=== PATIENT | female | born 1990 | race Caucasian/White ===

== ENCOUNTER → 2022-07-17 | Outpatient (CLI) | payer OTHER ==
[2022-07-17 15:47] VITALS: BP 122/85; PULSE 67; TEMP 98; BMI 45.1
--- NOTE | 2022-07-17 16:23 | P.BASOAP ---
Subjective Progress Note Date: 07/17/22 Patient presents for some in consultation. Highest weight of 290 pounds. She had attempted weight loss surgery however held due to recent childbirths. Mother also has morbid obesity and underwent sleeve gastrectomy doing well. Recommend bariatric metabolic panel. Also, patient reports moderate gastr oesophageal reflux disease on omeprazole. Patient also reports trials of multiple diet plans including Weight Watchers, Adipex, [place] diet, low carb diet. She has been able to 70 pounds prior to her first but she had regained the weight. She is looking into sleeve gastrectomy Objective - Vital Signs Vital signs: Vital Signs Temp 98 F 07/17/22 15:41 Pulse 67 07/17/22 15:41 Resp BP 122/85 07/17/22 15:41 Pulse Ox FiO2 Intake & Output 07/16/22 07/17/22 07/17/22 18:59 06:59 18:59 Weight 130.635 kg Assessment/Plan Plan: Date: 07/17/22 Initial Weight: Initial BMI: Current Weight: 130.635 kg Current BMI: 45.1 Type of Surgery: Total Volume in Band: Previous Volume: Volume Removed: Volume Added: Band Size:
[2022-07-17 17:30] LABS: INR 0.9 (<1.2); Partial Thromboplastin Time 25.9 sec (22.0-30.0); Prothrombin Time 10.1 sec (9.0-12.0)
[2022-07-17 22:38] LABS: HCT 41.3 % (37.2-46.3); HGB 13.3 g/dL (12.0-15.0); MCHC 32.2 g/dL (32.0-37.0); Mean Platelet Volume 9.7 fL (9.5-12.2); NRBC Per 100 WBC 0 /100 WBCS (0.0-0.0); Platelet Count 320 X 10*3/uL (140-440); RBC 4.59 X 10*6/uL (4.10-5.20); WBC 6.32 X 10*3/uL (4.50-10.00)
[2022-07-17 23:22] LABS: % Iron Saturation 13.23 (12.00-45.00); Total Iron Binding Capacity 398 ug/dL (228-460)
[2022-07-17 23:26] LABS: ALT 18 U/L (8-44); AST 25 U/L (13-35); African American GFR (CKD) 140.3 (60.0-200.0); Albumin 4.3 g/dL (3.8-4.9); Alkaline Phosphatase 97 U/L (41-126); BUN/Creat Ratio 23.85 Ratio (12.00-20.00); Blood Urea Nitrogen 15.1 mg/dL (9.0-27.0); Calcium 9.4 mg/dL (8.7-10.3); Carbon Dioxide 26.1 mmol/L (20.0-27.5); Chloride 102 mmol/L (96-109); Ferritin 19.4 ng/mL (10.0-291.0); Globulin 2.5 g/dL (1.6-3.3); Glucose 88 mg/dL (70-110); Iron 53 ug/dL (50-170); Magnesium 1.9 mg/dL (1.5-2.4); Phosphorus 3.4 mg/dL (2.4-5.1); Potassium 3.8 mmol/L (3.5-5.5); Sodium 139 mmol/L (135-145); Total Protein 6.9 g/dL (6.2-8.2)
[2022-07-17 23:33] LABS: Chol/HDL Ratio 2.82 Ratio; LDL Cholesterol,Calculated 98.4 mg/dL (0.0-131.0); Prealbumin 18.9 mg/dL (18.0-42.0)
[2022-07-19 11:53] LABS: Zinc, Serum 57 ug/dL (60-130)
== END ==
LOC: BARWHC3 09:32
PROVIDERS: ATTEND Surgery Plastic and Reconstructive Surgery
DX: E66.01 Morbid (severe) obesity due to excess calories (principal); D50.8 Other iron deficiency anemias; D50.9 Iron deficiency anemia, unspecified; E44.1 Mild protein-calorie malnutrition; E45 Retarded development following protein-calorie malnutrition; E55.9 Vitamin D deficiency, unspecified; K74.1 Hepatic sclerosis; N19 Unspecified kidney failure; T56.894A Toxic effect of other metals, undetermined, initial encounter; K50.90 Crohn's disease, unspecified, without complications; Z71.51 Drug abuse counseling and surveillance of drug abuser; Z68.42 Body mass index [BMI] 45.0-49.9, adult
CPT/HCPCS: 84255; 84134; 84425; 80061; 80053; 82607; 82728; 82525; 82746; 83540; 83550; 83735; 84100; 84443; 84590; 84630; 85027; 85610; 85730; 82306; 83970; 80307; 99203; 93005; G0482

== ENCOUNTER → 2022-09-30 | Outpatient (CLI) | payer OTHER ==
[2022-09-30 10:18] VITALS: BMI 45.8
== END ==
LOC: BARWHC3 08:38
PROVIDERS: ATTEND Surgery Plastic and Reconstructive Surgery
DX: E66.01 Morbid (severe) obesity due to excess calories (principal); Z71.3 Dietary counseling and surveillance; Z68.42 Body mass index [BMI] 45.0-49.9, adult
CPT/HCPCS: 97804

== ENCOUNTER → 2022-10-09 | Outpatient (CLI) | payer OTHER ==
[2022-10-10 09:13] VITALS: BP 131/84; PULSE 67; RESP 16; TEMP 97.9; BMI 45.7
--- NOTE | 2022-11-24 19:46 | P.BASOAP ---
Subjective Progress Note Date: 10/09/22 DATE OF SERVICE: 10/09/22 CHIEF COMPLAINT: Morbid obesity HISTORY OF PRESENT ILLNESS: Jo Ann Hansen is a 31-year-old female who comes with lifelong morbid obesity. As result of morbid obesity, she has developed osteoarthritis including gastroesophageal reflux disease. She has completed dietary classes. She completed upper endoscopy. She comes in with a 4 pound weight gain in 3 months. At height of 5 feet 7 iinches, her ideal body weight is 158 pounds. She was 287 pounds. She comes in 291 pounds, 3 months. She has gained 4 pounds in 3 months. Her body mass index is 45.7. She is 133 pounds overweight. PAST MEDICAL HISTORY: 1. Morbid obesity due to excess calories 2. Body mass index of 45.7 3. Osteoarthritis of the knees. 4. Osteoarthritis of the lower back. 5. Gastroesophageal reflux disease 6. Generalized anxiety disorder 7. Depressive disorder PAST SURGICAL HISTORY: 1. Upper endoscopy HOME MEDICATIONS: Home Medications Medication Instructions Recorded Confirmed Escitalopram Oxalate [Lexapro] 10 mg PO DAILY 07/17/22 10/16/22 Omeprazole 20 mg PO DAILY 07/17/22 10/16/22 Cholecalciferol [Vitamin D3 (125 250 mcg PO DAILY 08/21/22 10/16/22 Mcg = 5000 Iu)] Zinc Gluconate [Zinc] 50 mg PO DAILY 08/21/22 10/16/22 ALLERGIES: Allergies Allergy/AdvReac Type Severity Reaction Status Date / Time No Known Allergies Allergy Verified 08/26/22 07:45 SOCIAL HISTORY: No past tobacco use. FAMILY HISTORY: No family history of ulcerative colitis disease or Crohn's disease. Family history of morbid obesity. No lupus in the family. No reports of stomach or esophageal cancer. REVIEW OF ORGAN SYSTEMS: CONSTITUTIONAL: At height of 5 feet 7 iinches, her ideal body weight is 158 pounds. She comes in 291 pounds. Her body mass index is 45.7. She is 133 pounds overweight. HEENT: Denies any active troubles with vision or hearing. ENDOCRINE: Denies diabetes. Denies hypothyroidism. CARDIOVASCULAR: Past reports of palpitations or heart attacks or chest pain. RESPIRATORY: No recent pneumonia. GASTROINTESTINAL: Denies any bright red blood per rectum. Has gastroesophageal reflux disease. MUSCULOSKELETAL: Has lower back pain and joint pain. Has osteoarthritis of the knees. NEURO: No headaches. No seizure disorders. PSYCH: Has depression. No suicidal ideation. RHEUMATOLOGIC: No lupus. No rheumatoid arthritis. HEMATOLOGIC: Denies any abnormal bleeding or bruising. No personal history of DVTs. SKIN: Has rash. No skin cancer. PHYSICAL EXAM: VITAL SIGNS: Height 5 foot 7 inches, weight 291 pounds. BMI 45.7 Vital Signs Temp 97.9 F 10/09/22 09:06 Pulse 67 10/09/22 09:06 Resp 16 10/09/22 09:06 BP 131/84 10/09/22 09:06 Pulse Ox FiO2 GENERAL: Well-developed in no acute distress. HEENT: No scleral icterus. Extraocular movements grossly intact. Hears conversational speech. No nasal drainage. NECK: Supple without lymphadenopathy. CHEST: Nonlabored respirations with equal bilateral excursions. CARDIOVASCULAR: Regular rate and regular rhythm. Distal 2+ pulses. ABDOMEN: Obese, soft, nontender, nondistended. MUSCULOSKELETAL: No clubbing, cyanosis. NEURO: No focal or lateralizing signs. Cranial nerves 2 through 12 grossly within normal limits. PSYCH: Appropriate affect. Alert and oriented to person, place and time. SKIN: Good skin turgor. Well perfused. LABS: Triglycerides elevated. Cholesterol elevated. Vitamin D low. Zinc low. EKG: Normal sinus rhythm FINDINGS: Squamocolumnar junction 37 cm from the incisors. Diaphragmatic hiatus at 37 cm. Hill grade 2 lower esophageal valve. LA grade B erosive esophagitis. Cold forceps biopsies obtained of duodenum Chronic gastritis Final Pathologic Diagnosis A. DUODENUM, BIOPSY: Benign small bowel mucosa with intact villous architecture, negative for histopathologic abnormality. B. GASTRIC ANTRUM, BIOPSY: Mild chronic gastritis. Helicobacter pylori organisms are not identified on routine H+E sections. ASSESSMENT: 1. Morbid obesity due to excess calories 2. Body mass index of 45.7 3. Osteoarthritis of the knees. 4. Osteoarthritis of the lower back. 5. Gastroesophageal reflux disease 6. Generalized anxiety disorder 7. Depressive disorder 8. Hypertriglyceridemia 9. Hypercholesterolemia 10. Vitamin D deficiency 11. Zinc deficiency PLAN: 1. Bariatric options between a sleeve, band and a Heather-en-Y gastric bypass were reviewed in detail. 2. Completion of bariatric assessment described including psych assessment, risk assessment. 3. Recommend vitamin D supplement 4. Recommend zinc supplement Objective - Vital Signs Vital signs: Vital Signs Temp 97.9 F 10/09/22 09:06 Pulse 67 10/09/22 09:06 Resp 16 10/09/22 09:06 BP 131/84 10/09/22 09:06 Pulse Ox FiO2 Assessment/Plan Plan: Date: 10/09/22 Initial Weight: 130.635 kg Initial BMI: 45.1 Current Weight: 132.449 kg Current BMI: 45.7 Type of Surgery: Total Volume in Band: Previous Volume: Volume Removed: Volume Added: Band Size:
== END ==
LOC: BARWHC3 16:30
PROVIDERS: ATTEND Surgery Plastic and Reconstructive Surgery
DX: E66.01 Morbid (severe) obesity due to excess calories (principal); K21.9 Gastro-esophageal reflux disease without esophagitis; F41.1 Generalized anxiety disorder; M47.816 Spondylosis without myelopathy or radiculopathy, lumbar region; F32.A Depression, unspecified; E78.00 Pure hypercholesterolemia, unspecified; M17.0 Bilateral primary osteoarthritis of knee; Z71.3 Dietary counseling and surveillance; E55.9 Vitamin D deficiency, unspecified; E60 Dietary zinc deficiency; Z68.42 Body mass index [BMI] 45.0-49.9, adult
CPT/HCPCS: 99211

== ENCOUNTER → 2022-12-25 | Outpatient (CLI) | payer OTHER ==
[2022-12-26 02:21] LABS: ALT 18 U/L (8-44); AST 27 U/L (13-35); Albumin 4.3 d/dL (3.8-4.9); Albumin/Globulin Ratio 1.72 Ratio (1.60-3.17); Alkaline Phosphatase 93 U/L (41-126); Blood Urea Nitrogen 10.5 mg/dL (9.0-27.0); Calcium 9.3 mg/dL (8.7-10.3); Carbon Dioxide 22.4 mmol/L (21.6-31.8); Chloride 104 mmol/L (96-109); Globulin 2.5 d/dL (1.6-3.3); Glucose 73 mg/dL (70-110); Potassium 3.9 mmol/L (3.5-5.5); Sodium 140 mmol/L (135-145); Total Bilirubin 0.4 mg/dL (0.3-1.2); Total Protein 6.8 d/dL (6.2-8.2)
[2022-12-26 02:27] LABS: Basophils # (A) 0.04 X 10*3/uL (0.00-0.10); Basophils % (A) 0.6 %; Eosinophils # (A) 0.04 X 10*3/uL (0.04-0.35); Eosinophils % (A) 0.6 %; HCT 41.7 % (37.2-46.3); HGB 13.6 d/dL (12.0-15.0); Lymphocytes # (A) 2.11 X 10*3/uL (0.90-5.00); Lymphocytes % (A) 34.2 %; MCH 29.1 pg (27.0-32.0); MCHC 32.6 d/dL (32.0-37.0); MCV 89.3 FL (80.0-97.0); Mean Platelet Volume 9.6 FL (9.5-12.2); Monocytes # (A) 0.43 X 10*3/uL (0.20-1.00); NRBC Per 100 WBC 0 X 10*3/uL (0.00-0.01); Neutrophils # (A) 3.53 X 10*3/uL (1.80-7.70); Neutrophils % (A) 57.3 %; Platelet Count 329 X 10*3/uL (140-440); RBC 4.67 X 10*6/uL (4.10-5.20); RDW 13.3 % (11.5-14.5); WBC 6.17 X 10*3/uL (4.50-10.00)
== END | disposition home or self-care (01) ==
LOC: LABPAT 16:08
PROVIDERS: ATTEND Surgery Plastic and Reconstructive Surgery
DX: Z01.812 Encounter for preprocedural laboratory examination (principal)
CPT/HCPCS: 80053; 85025

== ENCOUNTER 2022-12-30 10:06 | Inpatient (IN) | payer OTHER ==
[~2022-12-30 10:06] MED LIST: CHLORHEXIDINE GLUCONATE 15 ML CUP MUCOUS MEM PRN; ENOXAPARIN 40 MG/0.4 ML SYRINGE SQ PRN; ceFAZolin 3 GM in SODIUM CHLORIDE 0.9% 100 ML IVPB PRN
[2022-12-30] MEDS ORDERED: DEXAMETHASONE SOD PHOSPHATE 4 MG/ML 1 ML VIAL IV ONE (13:32)
[2022-12-30] MEDS ORDERED: SCOPOLAMINE 1 MG/72 HR PATCH TRANSDERM ONE (13:32)
[2022-12-30] MEDS ORDERED: ONDANSETRON 4 MG/2 ML VIAL IVP ONE (13:32)
[2022-12-30] MEDS ORDERED: MIDAZOLAM 2 MG/2 ML VIAL IV PRN (13:32)
[2022-12-30] MEDS ORDERED: HYDROmorphone 0.5 MG/0.5 ML SYRINGE IVP PRN (13:32)
[2022-12-30] MEDS ORDERED: LACTATED RINGERS 1,000 ML IV SCH (13:32)
[2022-12-30] MEDS ORDERED: PANTOPRAZOLE 40 MG/10 ML VIAL IVP PRN (13:59)
[2022-12-30] MEDS ORDERED: LIDOCAINE 1% (10MG/ML) FOR IV START INTRADERMA ONE (14:03)
--- NOTE | 2022-12-30 15:40 | P.GSHP ---
History of Present Illness H&P Date: 12/30/22 CHIEF COMPLAINT: Morbid obesity HISTORY OF PRESENT ILLNESS: Jo Ann Hansen is a 32-year-old female who comes with lifelong morbid obesity. As result of morbid obesity, she has developed hypertensive heart disease, obstructive sleep apnea, hyperlipidemia, osteoarthritis of the hips and knees. She has completed medical supervised weight loss. She completed medical including cardiac assessment. She has completed psychological risk assessment. All surgical options were reviewed. She elected for sleeve gastrectomy. At height of 5 feet 7 inches, her ideal body weight is 159 pounds. She comes in 130.8 kg. Her body mass index is 45.2 PAST MEDICAL HISTORY: 1. Morbid obesity due to excess calories 2. Body mass index of 45.2 3. Osteoarthritis of the knees. 4. Osteoarthritis of the lower back. 5. Hypertensive heart disease. 6. Gastroesophageal reflux disease 7. Hyperlipidemia 8. Obstructive sleep apnea PAST SURGICAL HISTORY: 1. Reviewed HOME MEDICATIONS: Reviewed ALLERGIES: Reviewed SOCIAL HISTORY: No current tobacco use. FAMILY HISTORY: No family history of ulcerative colitis disease or Crohn's disease. Family history of morbid obesity. No lupus in the family. No reports of stomach or esophageal cancer. REVIEW OF ORGAN SYSTEMS: CONSTITUTIONAL: At height of 5 feet 7 inches, her ideal body weight is 158 pounds. HEENT: Denies any active troubles with vision or hearing. ENDOCRINE: Has diabetes. Has hypothyroidism. CARDIOVASCULAR: Past reports of palpitations or heart attacks or chest pain. RESPIRATORY: Has daytime somnolence. GASTROINTESTINAL: Denies any bright red blood per rectum. Has gastroesophageal reflux disease. MUSCULOSKELETAL: Has lower back pain and joint pain. Has osteoarthritis of the knees. NEURO: No headaches. No seizure disorders. PSYCH: Has depression. No suicidal ideation. RHEUMATOLOGIC: No lupus. No rheumatoid arthritis. HEMATOLOGIC: Denies any abnormal bleeding or bruising. No personal history of DVTs. SKIN: Has rash. No skin cancer. PHYSICAL EXAM: VITAL SIGNS: Height 5 foot 7 inches, weight 130.8 kg. BMI 45.2 GENERAL: Well-developed in no acute distress. HEENT: No scleral icterus. Extraocular movements grossly intact. Hears conversational speech. No nasal drainage. NECK: Supple without lymphadenopathy. CHEST: Nonlabored respirations with equal bilateral excursions. CARDIOVASCULAR: Regular rate and regular rhythm. Distal 2+ pulses. ABDOMEN: Obese, soft, nontender, nondistended. MUSCULOSKELETAL: No clubbing, cyanosis. NEURO: No focal or lateralizing signs. Cranial nerves 2 through 12 grossly within normal limits. PSYCH: Appropriate affect. Alert and oriented to person, place and time. SKIN: Good skin turgor. Well perfused. ASSESSMENT: 1. Morbid obesity due to excess calories 2. Body mass index of 45.2 3. Osteoarthritis of the knees. 4. Osteoarthritis of the lower back. 5. Hypertensive heart disease. 6. Gastroesophageal reflux disease 7. Hyperlipidemia 8. Obstructive sleep apnea PLAN: 1. Bariatric options between a sleeve, band and a Heather-en-Y gastric bypass were reviewed in detail. The patient elected for a sleeve gastrectomy. Robotic assisted approach described. 2. The [place] [facility] Data was also reviewed with benefits and risks as described. 3. An 8 page second-generation bariatric consent form was reviewed in detail including potential of bleeding, infection, leaks, adequate weight loss, nutritional deficiencies which the patient demonstrated understanding of the risks. 4. A 2 week high-protein low caloric 800 kcal diet described to address hepatomegaly. 5. Preoperative labs including complete metabolic panel and CBC with type and screen recommended. 6. DVT prophylaxis per [place] [facility] collaborative. 7. Antibiotic prophylaxis. 8. Inpatient hospitalization anticipated for more than 2 nights. 9. All questions and concerns were addressed with the patient. 10. She is at elevated risk for perioperative complications secondary to persistent leukocytosis, obstructive sleep apnea 11. Overall, patient has expressed understanding of bariatric care including postoperative diet and commitment of lifestyle. Patient should benefit from surgical intervention for correction of her morbid obesity. Past Medical History Past Medical History: GERD/Reflux Additional Past Medical History / Comment(s): diagnosed with reflux during pregnancies History of Any Multi-Drug Resistant Organisms: None Reported Additional Past Surgical History / Comment(s): wisdom teeth removed. EGD Past Anesthesia/Blood Transfusion Reactions: No Reported Reaction Smoking Status: Never smoker - Past Family History Mother Family Medical History: No Reported History Medications and Allergies Home Medications Medication Instructions Recorded Confirmed Type Escitalopram Oxalate [Lexapro] 10 mg PO DAILY 07/17/22 12/20/22 History Omeprazole 20 mg PO DAILY 07/17/22 12/20/22 History Cholecalciferol [Vitamin D3 (125 250 mcg PO DAILY 08/21/22 12/20/22 History Mcg = 5000 Iu)] Zinc Gluconate [Zinc] 50 mg PO DAILY 08/21/22 12/20/22 History Allergies Allergy/AdvReac Type Severity Reaction Status Date / Time No Known Allergies Allergy Verified 12/30/22 13:40 Surgical - Exam Vital Signs Temp Pulse Resp BP Pulse Ox 98.6 F 85 16 128/62 99 12/30/22 13:51 12/30/22 13:51 12/30/22 13:51 12/30/22 13:51 12/30/22 13:51
[2022-12-30] MEDS ORDERED: MIDAZOLAM 2 MG/2 ML VIAL ONE (16:14)
[2022-12-30] MEDS ORDERED: SUCCINYLCHOLINE CHLORIDE 200 MG/10 ML VIAL IV ONE (16:14)
[2022-12-30] MEDS ORDERED: NEOSTIGMINE 1 MG/ML 10 ML VIAL ONE (16:14)
[2022-12-30] MEDS ORDERED: ROCURONIUM 10 MG/ML (5 ML VIAL) IV ONE (16:14)
[2022-12-30] MEDS ORDERED: LIDOCAINE 2% INJ 20 MG/ML (2 ML VIAL) ONE (16:14)
[2022-12-30] MEDS ORDERED: KETAMINE 10 MG/ML 20 ML VIAL ONE (16:14)
[2022-12-30] MEDS ORDERED: PROPOFOL 10 MG/ML 20 ML VIAL IV ONE (16:14)
[2022-12-30] MEDS ORDERED: GLYCOPYRROLATE 0.2 MG/ML 2 ML VIAL ONE (16:14)
[2022-12-30] MEDS ORDERED: HYDROmorphone (PF) 1 MG/ML ONE (16:14)
[2022-12-30] MEDS ORDERED: diphenhydrAMINE 50 MG/ML 1 ML VIAL ONE (16:14)
[2022-12-30] MEDS ORDERED: fentaNYL (PF) 50 MCG/ML 2 ML AMP ONE (16:14)
[2022-12-30] MEDS ORDERED: BUPIVACAINE (PF) 0.25% 30 ML VIAL SQ ONE ×2 (16:26→16:47)
[2022-12-30] MEDS ORDERED: LACTATED RINGERS 1,000 ML IV ONE (17:45)
[2022-12-30] MEDS ORDERED: diphenhydrAMINE 50 MG/ML 1 ML VIAL IVP PRN (18:00)
[2022-12-30] MEDS ORDERED: NALOXONE 0.4 MG/ML 1 ML VIAL IV PRN (18:00)
[2022-12-30] MEDS ORDERED: DEXAMETHASONE SOD PHOSPHATE 10 MG/ML 1 ML VIAL IVP STA (18:03)
[2022-12-30] MEDS ORDERED: SCOPOLAMINE 1 MG/72 HR PATCH TRANSDERM STA (18:03)
[2022-12-30] MEDS ORDERED: SODIUM CHLORIDE 0.9% 2,000 ML IV ONE (18:04)
--- NOTE | 2022-12-30 18:07 | P.OP ---
Date of Procedure: 12/30/22 Description of Procedure: SURGEON: BETY MARROQUIN MD PREOPERATIVE DIAGNOSES: 1. Morbid obesity due to excess calories 2. Body mass index of 45.2 3. Osteoarthritis of the knees. 4. Osteoarthritis of the lower back. 5. Hypertensive heart disease. 6. Gastroesophageal reflux disease 7. Hyperlipidemia 8. Obstructive sleep apnea POSTOPERATIVE DIAGNOSES: 1. Morbid obesity due to excess calories 2. Body mass index of 45.2 3. Osteoarthritis of the knees. 4. Osteoarthritis of the lower back. 5. Hypertensive heart disease. 6. Gastroesophageal reflux disease 7. Hyperlipidemia 8. Obstructive sleep apnea OPERATION: 1. Robotic assisted daVinci Xi laparoscopic sleeve gastrectomy with 40-Greenlandic bougie, multiport. 2. Intraoperative esophagogastroduodenoscopy. ANESTHESIA: Gen. local anesthetic ESTIMATED BLOOD LOSS: 5 mL SPECIMENS REMOVED: Sleeve gastrectomy COMPLICATIONS: None. FINDINGS: 1. Negative intraoperative esophagogastrojejunoscopy leak test. 2. No hepatomegaly with hiatus hernia. 3. Total of 6 staplers used including 2 - 60 mm green robot lesly, 3 - 60 mm blue robot, 1 - 60 mm white loads used to create the gastric sleeve. 4. Sleeve gastrectomy, 23 x 6 cm INDICATIONS: is a 32-year-old female who comes with lifelong morbid obesity. She is looking into the sleeve gastrectomy. She has comorbidities including obstructive sleep apnea, insulin-dependent diabetes type 2, osteoarthritis of the knees and back At height of 5 feet 5 inches, her ideal body weight is 149 pounds. She comes in 316 pounds from 339 pounds, 1 month ago. She lost 23 pounds in 1 month. Her body mass index is down from 57.7 to 51.2. She is 167 pounds overweight. All surgical options for morbid obesity had been described using the [place] [facility] collaborative comorbidity resolution including complication risk score. A second-generation bariatric consent form was described in detail including the possibility of protein malnutrition, leaks, gastric stricture, venous thrombosis, gastroesophageal reflux disease, need for further surgery for which she demonstrated understanding. Benefits and risks of the procedure were described at length. Informed consent was obtained. DESCRIPTION: The patient was brought into the operating room theater. Preoperatively she had received Lovenox subcutaneously for DVT prophylaxis. Additionally she had Peridex oral solution as an oral decontaminant. After general induction, the abdomen was prepped and draped in standard sterile fashion. An Ioban draping was placed along the abdomen. A robotic da Namrata Xi system was prepped and primed. At 15 cm from the xiphoid, proposed port sites were marked with indelible marker along the anterior axillary line bilaterally, mid axillary line bilaterally with each ports were marked 10 to 15 cm from each other. The robotic stapler port was marked for the right midclavicular line. A 5 mm 0 degrees laparoscopic trocar entry was performed along the left upper quadrant. The abdomen was insufflated to 15 mmHg pressure was tolerated well. Diagnostic laparoscopy demonstrated no injury to bowel, viscera, or mesentery. No evidence of large hiatus hernia was identified. The liver edge was sharp consistent with 2 week low-carb high-protein diet. A 8 mm port was placed along the left upper abdominal wall after exchanging the 5 mm port. A separate 8 mm port was placed along the left lateral abdominal wall. Please note that the ports were placed at least 20 cm away from the target anatomy. Care was taken to check each robotic arms were safely away from collision with the bed or the patient. At the epigastrium, a medium sized Patti liver retractor was placed under direct visualization with the Iron Iphone Developer placed under the right shoulder of the patient. Next, 12-mm robot stapler port was placed along the right upper quadrant. The camera 8-mm port was maintained along the epigastrium. The patient was repositioned in reverse Trendelenburg position at 21-degrees after lowering the bed. The robot was docked along the left side of the patient. Using a grasper for arm 4, a vessel sealer for arm 3, including grasper for arm 1, the robotic system was docked and primed as described. Instruments were interchanged by the office administrative assistant for stapler loads. The camera was placed at 30- degrees down. I had sat at the console. The pylorus was identified and 6 cm proximally along the greater curvature of the stomach, the short gastrics were mobilized upwards to the angle of His using a vessel sealer. Hemostasis was excellent during this portion of the procedure. Next, the upper pole of the stomach was adherent to the left julien, which was gently dissected free using atraumatic grasper. I went to the head of the bed and placed 40-Greenlandic blunt bougie into the stomach. The bougie was readjusted by the nurse turbo electric operator. Robotic stapler black load 60 mm 2 followed by green 60 mm x 5 loads were used to create the sleeve. Initial firing was across the antrum of the stomach towards the angle of His. The staple line was linear without corkscrewing. The space from the angularis incisura of the sleeve was approximately 4 cm. I then went to the head of the bed to perform the intraoperative esophagogastroduodenoscopy leak test. The bougie was withdrawn. The upper pole of the stomach was bathed using normal saline solution. The scope was withdrawn with careful inspection along the staple line for which no leaks were found julia g the entire length. Additionally,the sleeve was completely hemostatic without any encroachment along the angularis incisura. Its topology was a soft "J". No stricture was encountered upon placement of the scope. The GI tract was desufflated. The patient tolerated this portion of the procedure well. The scope was completely withdrawn. The robot was undocked. I then rescrubbed into case, whereby the irrigation fluid was aspirated from the abdominal cavity. Tisseel fibrin sealant was placed along the entire staple length. Once dried the Patti liver retractor was removed. Attention was now brought to removal of the specimen. The distal end of the sleeve gastrectomy specimen was brought out through the 12 mm port at the left upper quadrant. The specimen was gently removed en total. No contamination had occurred during this process. All instruments and pneumoperitoneum including irrigation fluid was removed from the abdominal cavity. The 12 mm port site was closed using 0-Vicryl and Felipe Harrison and irrigated with diluted hydrogen peroxide. The final incisions were closed using subcuticular interrupted suture of 4-0 Monocryl. Exofin was applied to the skin once the skin had been cleansed. OptiFoam dressing was placed along the stomach extraction site. The sleeve specimen was measured and checked also for leaks which none were found. At the end of the procedure, needle, sponge, and instrument count was verified correct by the marine fisheries technician. The patient was taken to the postanesthesia care unit in stable condition. She had tolerated the procedure well. Intraoperative films and findings were reviewed with the patient's family.
[2022-12-30] MEDS ORDERED: HYDROmorphone 1 MG/ML 1 ML SYRINGE IVP PRN (18:10)
[2022-12-30] MEDS ORDERED: fentaNYL PCA 500 MCG/50 ML BAG IV SCH (18:15)
[2022-12-30] MEDS: ACETAMINOPHEN IV (For NPO) 1,000 MG in EMPTY BAG 1 BAG IVPB SCH (20:21)
[2022-12-30] MEDS: PANTOPRAZOLE 40 MG/10 ML VIAL IV SCH (20:28)
[2022-12-30] MEDS: SIMETHICONE 80 MG CHEWABLE PO SCH (20:50)
[2022-12-30] MEDS: HYOSCYAMINE ORAL DROPS 1.875 MG/15 ML BOTTLE PO SCH (20:50)
[2022-12-30] MEDS: ALBUTEROL NEBULIZED 2.5 MG/3 ML INHALATION SCH (20:59)
[2022-12-30] MEDS: 0.9% NACL WITH KCL 20 MEQ/L 1,000 ML IV SCH (22:45)
[2022-12-31] MEDS ORDERED: ceFAZolin 3 GM in SODIUM CHLORIDE 0.9% 100 ML IVPB SCH ×2
[2022-12-31] MEDS: ACETAMINOPHEN IV (For NPO) 1,000 MG in EMPTY BAG 1 BAG IVPB SCH ×3 (00:36→12:05)
[2022-12-31] MEDS: DEXAMETHASONE SOD PHOSPHATE 4 MG/ML 1 ML VIAL IVP SCH ×3 (00:38→12:06)
[2022-12-31] MEDS: METOCLOPRAMIDE 5 MG/ML 2 ML VIAL IVP SCH ×3 (00:38→12:06)
[2022-12-31] MEDS: SIMETHICONE 80 MG CHEWABLE PO SCH ×3 (00:39→14:10)
[2022-12-31] MEDS: HYOSCYAMINE ORAL DROPS 1.875 MG/15 ML BOTTLE PO SCH ×3 (00:39→12:06)
[2022-12-31] MEDS: ONDANSETRON 4 MG/2 ML VIAL IVP SCH ×3 (00:39→12:06)
[2022-12-31] MEDS: 0.9% NACL WITH KCL 20 MEQ/L 1,000 ML IV SCH (06:19)
[2022-12-31] MEDS ORDERED: 0.9% NACL WITH KCL 20 MEQ/L 1,000 ML IV SCH (08:00)
[2022-12-31 08:24] VITALS: RESP 16
[2022-12-31] MEDS: PANTOPRAZOLE 40 MG/10 ML VIAL IV SCH (08:32)
[2022-12-31] MEDS ORDERED: ENOXAPARIN 40 MG/0.4 ML SYRINGE SQ SCH (09:00)
--- NOTE | 2022-12-31 09:22 | FL ---
EXAMINATION TYPE: FL UGI DATE OF EXAM: 12/31/2022 8:55 AM CLINICAL INDICATION:Female, 32 years old with history of Post Op Bariatric Surgery; COMPARISON: 07/29/2013 TECHNIQUE: Limited single contrast UGI study is performed with Isovue-370. A total of 13 seconds of f luoroscopic time was utilized during procedure and 7 images obtained. DAP: 577.87 mGym2 FINDINGS: The stomach demonstrates a postsurgical morphology. No extravasation of contrast identifie d. No evidence of mass or ulcer disease. Free flow contrast through the gastroesophageal junction. IMPRESSION: Postsurgical changes without evidence of contrast extravasation.
[2022-12-31] MEDS: ALBUTEROL NEBULIZED 2.5 MG/3 ML INHALATION SCH ×2 (09:44→13:28)
[2022-12-31 11:33] LABS: Basophils # (A) 0.01 X 10*3/uL (0.00-0.10); Basophils % (A) 0.1 %; Eosinophils # (A) 0 X 10*3/uL (0.04-0.35); Eosinophils % (A) 0 %; HCT 39.4 % (37.2-46.3); HGB 13.2 d/dL (12.0-15.0); Lymphocytes # (A) 0.53 X 10*3/uL (0.90-5.00); Lymphocytes % (A) 6.5 %; MCH 29.6 pg (27.0-32.0); MCHC 33.5 d/dL (32.0-37.0); MCV 88.3 FL (80.0-97.0); Mean Platelet Volume 9.3 FL (9.5-12.2); Monocytes # (A) 0.08 X 10*3/uL (0.20-1.00); NRBC Per 100 WBC 0 X 10*3/uL (0.00-0.01); Neutrophils # (A) 7.55 X 10*3/uL (1.80-7.70); Platelet Count 299 X 10*3/uL (140-440); RBC 4.46 X 10*6/uL (4.10-5.20); RDW 13.1 % (11.5-14.5)
[2022-12-31 11:47] LABS: Blood Urea Nitrogen 7.4 mg/dL (9.0-27.0); Calcium 8.7 mg/dL (8.7-10.3); Carbon Dioxide 17.2 mmol/L (21.6-31.8); Chloride 105 mmol/L (96-109); Magnesium 1.7 mg/dL (1.5-2.4); Phosphorus 2.4 mg/dL (2.4-5.1); Potassium 4.6 mmol/L (3.5-5.5); Sodium 137 mmol/L (135-145)
[2022-12-31 11:55] VITALS: BMI 45.1
[2022-12-31 13:36] VITALS: BP 102/70; TEMP 98.1
[2022-12-31 13:41] VITALS: PULSE 78
[2022-12-31] MEDS ORDERED: MAGNESIUM SULFATE-D5W PMX 1 GM in DEXTROSE/WATER 1 100ML.BAG IVPB ONE (13:58)
--- NOTE | 2022-12-31 14:51 | P.DS ---
Providers Date of admission: 12/30/22 13:17 Expected date of discharge: 12/31/22 Attending physician: Elo Patel Primary care physician: Kimmie Warren Hospital Course: Discharge diagnosis 1. Morbid obesity due to excess calories 2. Body mass index of 45.2 3. Osteoarthritis of the knees. 4. Osteoarthritis of the lower back. 5. Hypertensive heart disease. 6. Gastroesophageal reflux disease 7. Hyperlipidemia 8. Obstructive sleep apnea 9. Hypomagnesemia replaced Hospital course This is a 32-year-old female with a known history of morbid obesity. She is status post robotic-assisted laparoscopic sleeve gastrectomy. Patient tolerated surgery well. Upper GI shows no evidence of leak or obstruction. She is tolerating diet. She's afebrile. She has been up and walking. Her pain is controlled. She is stable for discharge. Physician Logistics Lead note has been reviewed by physician. Signing provider agrees with the documented findings, assessment, and plan of care. Patient Condition at Discharge: Stable Plan - Discharge Summary Discharge Rx Participant: No New Discharge Prescriptions: New Simethicone 40 mg/0.6 ml Drops [Mylicon Drops] 40 mg PO PCHS PRN #30 ml PRN Reason: Gas Omeprazole [PriLOSEC] 40 mg PO DAILY #30 cap Acetaminophen Tab [Tylenol] 1,000 mg PO Q6HR PRN #30 tablet PRN Reason: Pain bisacodyL [Dulcolax] 5 mg PO DAILY PRN #10 tab PRN Reason: Constipation Ondansetron Odt [Zofran Odt] 4 mg PO Q8HR PRN #9 tab PRN Reason: Nausea Discontinued Escitalopram Oxalate [Lexapro] 10 mg PO DAILY Omeprazole 20 mg PO DAILY Zinc Gluconate [Zinc] 50 mg PO DAILY Cholecalciferol [Vitamin D3 (125 Mcg = 5000 Iu)] 250 mcg PO DAILY Discharge Medication List Acetaminophen Tab [Tylenol] 1,000 mg PO Q6HR PRN #30 tablet 12/31/22 [Rx] Omeprazole [PriLOSEC] 40 mg PO DAILY #30 cap 12/31/22 [Rx] Ondansetron Odt [Zofran Odt] 4 mg PO Q8HR PRN #9 tab 12/31/22 [Rx] Simethicone 40 mg/0.6 ml Drops [Mylicon Drops] 40 mg PO PCHS PRN #30 ml 12/31/22 [Rx] bisacodyL [Dulcolax] 5 mg PO DAILY PRN #10 tab 12/31/22 [Rx] Follow up Appointment(s)/Referral(s): Bariatric [place], [place] [NON-STAFF] - 01/03/23 9:00 am Patient Instructions/Handouts: Nutrition after Bariatric Surgery (DC), Nutrition after Bariatric Surgery (GEN), Laparoscopic Sleeve Gastrectomy (DC), Laparoscopic Sleeve Gastrectomy (GEN) Activity/Diet/Wound Care/Special Instructions: Liquid diet only for 2 weeks No lifting over 4 pounds in 4 weeks May Shower. No soaking in bath tubs for 2 weeks Please notify your surgeon if you develop nausea and vomiting including new onset of abdominal pain. Continue to use incentive spirometry to prevent pneumonias. Please continue to ambulate at home to prevent blood clots in legs. Follow-up at the bariatric center. May shower. Dressings to be discontinued by surgeon in the office. Drink 64 oz of fluid daily. Start protein shakes on . Notify bariatric center for temp over 101.0, increased pain, drainage from incisions. No straws or carbonated beverages. Liquid diet only. Sugar content should be less than 6 g to avoid dumping syndrome. Take MOM for constipation. CRUSH, OPEN, OR CUT TABLETS LARGER THAN A SIZE OF A TIC TAC Do not take Lexapro or vitamins until seen by surgeon because these medications can increase bleeding risk. Discharge Disposition: HOME SELF-CARE
[2023-01-01] MEDS ORDERED: bisacodyL 5 MG TABLET.DR PO PRN (08:00)
== END 2022-12-31 16:40 | disposition home or self-care (01) | DRG 621 ==
LOC: 2ORMAIN 13:17 → 4SSUR 19:44
PROVIDERS: ADMIT Surgery Plastic and Reconstructive Surgery; ATTEND Surgery Plastic and Reconstructive Surgery
PROC: 0DB64Z3 Excision of Stomach, Percutaneous Endoscopic Approach, Vertical (ICD-10-PCS; principal; 2022-12-30 14:35)
PROC: 0DJ08ZZ Inspection of Upper Intestinal Tract, Via Natural or Artificial Opening Endoscopic (ICD-10-PCS; principal; 2022-12-30 14:35)
PROC: 8E0W4CZ Robotic Assisted Procedure of Trunk Region, Percutaneous Endoscopic Approach (ICD-10-PCS; principal; 2022-12-30 14:35)
DX: E66.01 Morbid (severe) obesity due to excess calories (principal); I11.9 Hypertensive heart disease without heart failure; E11.9 Type 2 diabetes mellitus without complications; Z68.42 Body mass index [BMI] 45.0-49.9, adult; Z28.310 Unvaccinated for COVID-19; M17.0 Bilateral primary osteoarthritis of knee; M16.0 Bilateral primary osteoarthritis of hip; M47.9 Spondylosis, unspecified; K21.9 Gastro-esophageal reflux disease without esophagitis; E78.5 Hyperlipidemia, unspecified; G47.33 Obstructive sleep apnea (adult) (pediatric); E83.42 Hypomagnesemia; Z79.899 Other long term (current) drug therapy; Z71.3 Dietary counseling and surveillance
CPT/HCPCS: 74240; 80051; 81025; 82310; 82565; 83735; 84100; 84520; 85025; 88307; 94640; 94760

== ENCOUNTER → 2023-01-03 | Outpatient (CLI) | payer OTHER ==
[~2023-01-03] MED LIST changes: -CHLORHEXIDINE GLUCONATE 15 ML CUP MUCOUS MEM PRN; -ENOXAPARIN 40 MG/0.4 ML SYRINGE SQ PRN; +SODIUM CHLORIDE 0.9% 2,000 ML IV ONE; +SODIUM CHLORIDE 0.9% 500 ML 500 ML in EMPTY BAG 1 BAG IV PRN; -ceFAZolin 3 GM in SODIUM CHLORIDE 0.9% 100 ML IVPB PRN
[2023-01-03 09:48] VITALS: BP 140/80; PULSE 76; RESP 16; TEMP 98.1
== END ==
LOC: PROCWHC3 09:36
PROVIDERS: ATTEND Surgery Plastic and Reconstructive Surgery
DX: E86.0 Dehydration (principal)
CPT/HCPCS: 96360

== ENCOUNTER → 2023-02-05 | Outpatient (CLI) | payer OTHER ==
[2023-02-05 16:45] VITALS: BP 120/85; PULSE 75; TEMP 97.9; BMI 42.4
--- NOTE | 2023-02-05 17:11 | P.BASOAP ---
Subjective Progress Note Date: 02/05/23 She has rare reflux. She is 1 month. She has lost 13 pounds in 1 month. Activity is walking is 2 miles. She was on lexapro. Labs needed. Objective - Vital Signs Vital signs: Vital Signs Temp 97.9 F 02/05/23 16:42 Pulse 75 02/05/23 16:42 Resp BP 120/85 02/05/23 16:42 Pulse Ox FiO2 Intake & Output 02/04/23 02/05/23 02/05/23 18:59 06:59 18:59 Weight 122.924 kg Assessment/Plan Plan: Date: 02/05/23 Initial Weight: 130.635 kg Initial BMI: 45.1 Current Weight: 122.924 kg Current BMI: 42.4 Type of Surgery: Total Volume in Band: Previous Volume: Volume Removed: Volume Added: Band Size:
== END ==
LOC: BARWHC3 16:32
PROVIDERS: ATTEND Surgery Plastic and Reconstructive Surgery
DX: Z53.9 Procedure and treatment not carried out, unspecified reason (principal)
CPT/HCPCS: 99211

== ENCOUNTER → 2023-03-05 | Outpatient (CLI) | payer OTHER ==
[2023-03-05 20:42] LABS: INR <0.93 sec (0.93-1.11); Partial Thromboplastin Time 30.8 sec (23.5-31.0); Prothrombin Time 10.3 sec (9.9-11.9)
[2023-03-05 21:43] LABS: HCT 43.4 % (37.2-46.3); HGB 13.6 d/dL (12.0-15.0); MCH 28.9 pg (27.0-32.0); MCHC 31.3 d/dL (32.0-37.0); MCV 92.1 FL (80.0-97.0); Mean Platelet Volume 10.6 FL (9.5-12.2); NRBC Per 100 WBC 0 X 10*3/uL (0.00-0.01); Platelet Count 261 X 10*3/uL (140-440); RBC 4.71 X 10*6/uL (4.10-5.20); RDW 14.9 % (11.5-14.5); WBC 6.75 X 10*3/uL (4.50-10.00)
[2023-03-06 03:12] LABS: % Iron Saturation 30.79 (12.00-45.00); ALT 26 U/L (8-44); AST 24 U/L (13-35); Albumin 4.5 d/dL (3.8-4.9); Albumin/Globulin Ratio 2.05 Ratio (1.60-3.17); Alkaline Phosphatase 81 U/L (41-126); Blood Urea Nitrogen 18.9 mg/dL (9.0-27.0); Calcium 9.6 mg/dL (8.7-10.3); Carbon Dioxide 22.4 mmol/L (21.6-31.8); Chloride 105 mmol/L (96-109); Chol/HDL Ratio 3.04 Ratio; Ferritin 23.7 ng/mL (10.0-291.0); Globulin 2.2 d/dL (1.6-3.3); Glucose 80 mg/dL (70-110); Iron 109 UG/DL (50-170); LDL Cholesterol,Calculated 102.8 mg/dL (0.0-131.0); Phosphorus 3.8 mg/dL (2.4-5.1); Sodium 138 mmol/L (135-145); Total Bilirubin 0.5 mg/dL (0.3-1.2); Total Iron Binding Capacity 354 UG/DL (228-460); Total Protein 6.7 d/dL (6.2-8.2)
[2023-03-06 10:51] LABS: Zinc, Serum 69 ug/dL (60-130)
[2023-03-10 15:07] LABS: Vitamin A 37 ug/dL (38-106)
== END | disposition home or self-care (01) ==
LOC: LABWHC1 16:08
PROVIDERS: ATTEND Surgery Plastic and Reconstructive Surgery
DX: E66.01 Morbid (severe) obesity due to excess calories (principal); E89.1 Postprocedural hypoinsulinemia; D50.8 Other iron deficiency anemias; K91.2 Postsurgical malabsorption, not elsewhere classified; E44.0 Moderate protein-calorie malnutrition; E44.1 Mild protein-calorie malnutrition; E45 Retarded development following protein-calorie malnutrition; E55.9 Vitamin D deficiency, unspecified; K74.1 Hepatic sclerosis; N19 Unspecified kidney failure; T56.894A Toxic effect of other metals, undetermined, initial encounter; K50.90 Crohn's disease, unspecified, without complications; E46 Unspecified protein-calorie malnutrition
CPT/HCPCS: 36415; 80053; 80061; 82306; 82525; 82607; 82728; 82746; 83036; 83540; 83550; 83735; 83970; 84100; 84134; 84255; 84443; 84590; 84630; 85027; 85610; 85730

== ENCOUNTER → 2023-03-06 | Outpatient (CLI) | payer OTHER | END | disposition home or self-care (01) | LOC: LABWHC1 12:31 | PROVIDERS: ATTEND Surgery Plastic and Reconstructive Surgery | DX: E66.01 Morbid (severe) obesity due to excess calories (principal) | CPT/HCPCS: 84425 ==

== ENCOUNTER → 2023-04-02 | Outpatient (CLI) | payer OTHER ==
[2023-04-02 16:50] VITALS: BP 118/82; PULSE 78; RESP 13; TEMP 97.5; BMI 39.6
--- NOTE | 2023-04-02 16:57 | P.BASOAP ---
Subjective Progress Note Date: 04/02/23 DATE OF SERVICE: 04/02/2023 CHIEF COMPLAINT: Morbid obesity HISTORY OF PRESENT ILLNESS: Jo Ann Hansen is a 32-year-old female who comes with morbid obesity. She is status post gastrectomy 12/30/2022. She is 3 months out. She feels fine. She is on omeprazole for reflux and on 40 mg daily. She is doing well. She has lost 50 pounds. At height of 5 feet 7 inches, her ideal body weight is 158 pounds. She comes in 253 pounds from 291 pounds, 3 months ago. She has lost 38 pounds. Her body mass index is 39.6. She is 95 pounds overweight. PHYSICAL EXAM: VITAL SIGNS: Height 5 foot 7 inches, weight 253 pounds. BMI 39.6 Vital Signs Temp 97.5 F L 04/02/23 16:32 Pulse 78 04/02/23 16:32 Resp 13 04/02/23 16:32 BP 118/82 04/02/23 16:32 Pulse Ox FiO2 GENERAL: Well-developed in no acute distress. HEENT: No scleral icterus. Extraocular movements grossly intact. Hears conversational speech. No nasal drainage. NECK: Supple without lymphadenopathy. CHEST: Nonlabored respirations with equal bilateral excursions. CARDIOVASCULAR: Regular rate and regular rhythm. Distal 2+ pulses. ABDOMEN: Obese, soft, nontender, nondistended. MUSCULOSKELETAL: No clubbing, cyanosis. NEURO: No focal or lateralizing signs. Cranial nerves 2 through 12 grossly wit hin normal limits. PSYCH: Appropriate affect. Alert and oriented to person, place and time. SKIN: Good skin turgor. Well perfused. ASSESSMENT: 1. Morbid obesity due to excess calories 2. Body mass index of 39.6 3. Osteoarthritis of the knees. 4. Osteoarthritis of the lower back. 5. Gastroesophageal reflux disease PLAN: 1. Omeprazole 40 mg daily 2. Recommend caution with sodium intake. Objective - Vital Signs Vital signs: Vital Signs Temp 97.5 F L 04/02/23 16:32 Pulse 78 04/02/23 16:32 Resp 13 04/02/23 16:32 BP 118/82 04/02/23 16:32 Pulse Ox FiO2 Intake & Output 04/01/23 04/02/23 04/02/23 18:59 06:59 18:59 Weight 114.759 kg Assessment/Plan Plan: Date: 04/02/23 Initial Weight: 130.635 kg Initial BMI: 45.1 Current Weight: 114.759 kg Current BMI: 39.6 Type of Surgery: Total Volume in Band: Previous Volume: Volume Removed: Volume Added: Band Size:
== END ==
LOC: BARWHC3 16:29
PROVIDERS: ATTEND Surgery Plastic and Reconstructive Surgery
DX: E66.01 Morbid (severe) obesity due to excess calories (principal); M17.0 Bilateral primary osteoarthritis of knee; K21.9 Gastro-esophageal reflux disease without esophagitis; M47.816 Spondylosis without myelopathy or radiculopathy, lumbar region; Z68.39 Body mass index [BMI] 39.0-39.9, adult
CPT/HCPCS: 99211

== ENCOUNTER → 2023-07-02 | Outpatient (CLI) | payer BC ==
[2023-07-02 17:18] VITALS: BP 113/78; PULSE 74; TEMP 98.4; BMI 36.9
--- NOTE | 2023-07-02 17:23 | P.BASOAP ---
Subjective Progress Note Date: 07/02/23 DATE: 07/02/23 CHIEF COMPLAINT: Status post sleeve gastrectomy HISTORY OF PRESENT ILLNESS: Jo Ann Hansen is a 32-year-old female who comes with lifelong morbid obesity. As result of morbid obesity, she has developed hypertensive heart disease, obstructive sleep apnea, hyperlipidemia, osteoarthritis of the hips and knees. She is status post sleeve gastrectomy 12/30/2022. She is 6 months postop. She has gastroesophageal reflux disease without omeprazole. She has lost 60 pounds. She denies stuck sensation of foods. She wants to lose 100 pounds. At height of 5 feet 7 inches, her ideal body weight is 159 pounds. Highest weight is 292 pounds, body mass index, 45.9. She comes in 236 pounds. Her body mass index is 37.0. Lifetime weight loss 56 pounds. Lifetime percent excess weight 42%. PAST MEDICAL HISTORY: 1. Morbid obesity due to excess calories 2. Body mass index of 45.2 3. Osteoarthritis of the knees. 4. Osteoarthritis of the lower back. 5. Hypertensive heart disease. 6. Gastroesophageal reflux disease 7. Hyperlipidemia 8. Obstructive sleep apnea 9. Depressive disorder PAST SURGICAL HISTORY: 1. Sleeve gastrectomy HOME MEDICATIONS: Home Medications Medication Instructions Recorded Confirmed Omeprazole [PriLOSEC] 40 mg PO BID 02/05/23 07/02/23 Escitalopram [Lexapro] 10 mg PO DAILY 04/02/23 07/02/23 Bariatric Multivitamin 1 tab PO DAILY 07/02/23 07/02/23 Calcium Citrate 250 mg PO DAILY 07/02/23 07/02/23 ALLERGIES: Allergies Allergy/AdvReac Type Severity Reaction Status Date / Time No Known Allergies Allergy Verified 04/02/23 16:33 SOCIAL HISTORY: No current tobacco use. FAMILY HISTORY: No family history of ulcerative colitis disease or Crohn's disease. Family history of morbid obesity. No lupus in the family. No reports of stomach or esophageal cancer. REVIEW OF ORGAN SYSTEMS: CONSTITUTIONAL: At height of 5 feet 7 inches, her ideal body weight is 159 pounds. Highest weight is 292 pounds, body mass index, 45.9. She comes in 236 pounds. Her body mass index is 37.0. Lifetime weight loss 56 pounds. Lifetime percent excess weight 42%. HEENT: Denies any active troubles with vision or hearing. ENDOCRINE: Denies diabetes. Denies hypothyroidism. CARDIOVASCULAR: Past reports of palpitations or heart attacks or chest pain. RESPIRATORY: Has daytime somnolence. GASTROINTESTINAL: Denies any bright red blood per rectum. Has gastroesophageal reflux disease. MUSCULOSKELETAL: Has lower back pain and joint pain. Has osteoarthritis of the knees. NEURO: No headaches. No seizure disorders. PSYCH: Has depression. No suicidal ideation. RHEUMATOLOGIC: No lupus. No rheumatoid arthritis. HEMATOLOGIC: Denies any abnormal bleeding or bruising. No personal history of DVTs. SKIN: Has rash. No skin cancer. PHYSICAL EXAM: VITAL SIGNS: Height 5 foot 7 inches, weight 236 pounds. BMI 37.0 Vital Signs Temp 98.4 F 07/02/23 17:00 Pulse 74 07/02/23 17:00 Resp BP 113/78 07/02/23 17:00 Pulse Ox FiO2 GENERAL: Well-developed in no acute distress. HEENT: No scleral icterus. Extraocular movements grossly intact. Hears conversational speech. No nasal drainage. NECK: Supple without lymphadenopathy. CHEST: Nonlabored respirations with equal bilateral excursions. CARDIOVASCULAR: Regular rate and regular rhythm. Distal 2+ pulses. ABDOMEN: Obese, soft, nontender, nondistended. MUSCULOSKELETAL: No clubbing, cyanosis. NEURO: No focal or lateralizing signs. Cranial nerves 2 through 12 grossly within normal limits. PSYCH: Appropriate affect. Alert and oriented to person, place and time. SKIN: Good skin turgor. Well perfused. ASSESSMENT: 1. Morbid obesity due to excess calories 2. Body mass index of 45.2 3. Osteoarthritis of the knees. 4. Osteoarthritis of the lower back. 5. Hypertensive heart disease. 6. Gastroesophageal reflux disease 7. Hyperlipidemia 8. Obstructive sleep apnea 9. Depressive disorder 10. Dietary surveillance and counseling PLAN: 1. She has uncontrolled gastroesophageal reflux disease with increased risk risks of gallstones. Recommend ultrasound of the gallbladder including HIDA scan for gallbladder dysfunction and gallstones. 2. Recommend bariatric labs 3. Recommend 100 grams of protein daily Objective - Vital Signs Vital signs: Vital Signs Temp 98.4 F 07/02/23 17:00 Pulse 74 07/02/23 17:00 Resp BP 113/78 07/02/23 17:00 Pulse Ox FiO2 Intake & Output 07/01/23 07/02/2324 18:59 06:59 18:59 Weight 107.048 kg Assessment/Plan Plan: Date: 07/02/23 Initial Weight: 130.635 kg Initial BMI: 45.1 Current Weight: 107.048 kg Current BMI: 36.9 Type of Surgery: Total Volume in Band: Previous Volume: Volume Removed: Volume Added: Band Size:
== END ==
LOC: BARWHC3 16:24
PROVIDERS: ATTEND Surgery Plastic and Reconstructive Surgery
DX: E66.01 Morbid (severe) obesity due to excess calories (principal); M17.0 Bilateral primary osteoarthritis of knee; M47.816 Spondylosis without myelopathy or radiculopathy, lumbar region; I11.9 Hypertensive heart disease without heart failure; K21.9 Gastro-esophageal reflux disease without esophagitis; E78.5 Hyperlipidemia, unspecified; G47.33 Obstructive sleep apnea (adult) (pediatric); F32.A Depression, unspecified; Z71.3 Dietary counseling and surveillance; Z68.42 Body mass index [BMI] 45.0-49.9, adult; Z98.84 Bariatric surgery status
CPT/HCPCS: 99211

== ENCOUNTER → 2023-07-10 | Outpatient (CLI) | payer BC ==
[2023-07-10 10:57] LABS: Partial Thromboplastin Time 26.2 sec (22.0-30.0); Prothrombin Time 10.7 sec (10.0-12.5)
[2023-07-10 16:09] LABS: HCT 41.4 % (37.2-46.3); HGB 13.7 g/dL (12.0-15.0); MCH 29.5 pg (27.0-32.0); MCHC 33.1 g/dL (32.0-37.0); Mean Platelet Volume 10.7 FL (9.5-12.2); NRBC Per 100 WBC 0 X 10*3/uL (0.00-0.01); Platelet Count 283 X 10*3/uL (140-440); RBC 4.65 X 10*6/uL (4.10-5.20); RDW 12.8 % (11.5-14.5); WBC 5.46 X 10*3/uL (4.50-10.00)
[2023-07-10 16:21] LABS: Prealbumin 16.6 mg/dL (18.0-42.0)
[2023-07-10 16:37] LABS: % Iron Saturation 23.08 (12.00-45.00); ALT 15 U/L (8-44); AST 20 U/L (13-35); Albumin 4.4 g/dL (3.8-4.9); Albumin/Globulin Ratio 1.83 Ratio (1.60-3.17); Alkaline Phosphatase 90 U/L (41-126); BUN/Creat Ratio 20.33 Ratio (12.00-20.00); Blood Urea Nitrogen 12.2 mg/dL (9.0-27.0); Calcium 9.5 mg/dL (8.7-10.3); Carbon Dioxide 21.7 mmol/L (21.6-31.8); Chloride 106 mmol/L (96-109); Chol/HDL Ratio 3.09 Ratio; Ferritin 48.7 ng/mL (10.0-291.0); Globulin 2.4 g/dL (1.6-3.3); Glucose 81 mg/dL (70-110); Iron 81 UG/DL (50-170); LDL Cholesterol,Calculated 99.3 mg/dL (0.0-131.0); Magnesium 1.9 mg/dL (1.5-2.4); Phosphorus 3.2 mg/dL (2.4-5.1); Potassium 3.8 mmol/L (3.5-5.5); Sodium 141 mmol/L (135-145); Total Bilirubin 0.7 mg/dL (0.3-1.2); Total Iron Binding Capacity 351 UG/DL (228-460); Total Protein 6.8 g/dL (6.2-8.2)
[2023-07-11 13:11] LABS: Zinc, Serum 84 ug/dL (60-130)
== END | disposition home or self-care (01) ==
LOC: LABPAT 09:48
PROVIDERS: ATTEND Surgery Plastic and Reconstructive Surgery
DX: E66.01 Morbid (severe) obesity due to excess calories (principal); E89.1 Postprocedural hypoinsulinemia; D50.8 Other iron deficiency anemias; K91.2 Postsurgical malabsorption, not elsewhere classified; E44.0 Moderate protein-calorie malnutrition; E44.1 Mild protein-calorie malnutrition; E45 Retarded development following protein-calorie malnutrition; E46 Unspecified protein-calorie malnutrition; E55.9 Vitamin D deficiency, unspecified; K74.1 Hepatic sclerosis; N19 Unspecified kidney failure; T56.894A Toxic effect of other metals, undetermined, initial encounter; K50.90 Crohn's disease, unspecified, without complications
CPT/HCPCS: 80053; 80061; 82306; 82525; 82607; 82728; 82746; 83036; 83540; 83550; 83735; 83970; 84100; 84134; 84255; 84425; 84443; 84590; 84630; 85027; 85610; 85730; 93005

== ENCOUNTER → 2023-10-01 | Outpatient (CLI) | payer BC ==
--- NOTE | 2023-10-01 16:37 | P.BASOAP ---
Subjective Progress Note Date: 10/01/23 She has plateau. Lost 70 pounds. She needs founds. Labs. MVI is bariatiric advantage. Protein is 80 grams. Has heartburn. She does better BID omeprazlole. Goal is 100 in 1 year. Objective - Vital Signs Vital signs: Vital Signs Temp 98.2 F 10/01/23 16:09 Pulse 72 10/01/23 16:09 Resp BP 110/72 10/01/23 16:09 Pulse Ox FiO2 Intake & Output 09/30/23 10/01/23 10/01/23 18:59 06:59 18:59 Weight 102.512 kg Assessment/Plan Plan: Date: 10/01/23 Initial Weight: 130.635 kg Initial BMI: 45.1 Current Weight: 102.512 kg Current BMI: 35.4 Type of Surgery: Total Volume in Band: Previous Volume: Volume Removed: Volume Added: Band Size:
[2023-10-02 03:29] VITALS: BP 110/72; PULSE 72; TEMP 98.2; BMI 35.4
== END ==
LOC: BARWHC3 15:59
PROVIDERS: ATTEND Surgery Plastic and Reconstructive Surgery
DX: Z53.9 Procedure and treatment not carried out, unspecified reason (principal)
CPT/HCPCS: 99211

== ENCOUNTER → 2023-10-14 | Outpatient (CLI) | payer BC ==
[2023-10-14 11:29] LABS: INR 0.9 (<1.2); Partial Thromboplastin Time 26.9 sec (22.0-30.0); Prothrombin Time 10.4 sec (10.0-12.5)
[2023-10-14 15:55] LABS: HCT 41.7 % (37.2-46.3); HGB 13.6 g/dL (12.0-15.0); MCHC 32.6 g/dL (32.0-37.0); MCV 91.9 FL (80.0-97.0); Mean Platelet Volume 10.5 FL (9.5-12.2); NRBC Per 100 WBC 0 X 10*3/uL (0.00-0.01); Platelet Count 249 X 10*3/uL (140-440); RBC 4.54 X 10*6/uL (4.10-5.20); RDW 12.7 % (11.5-14.5); WBC 5.02 X 10*3/uL (4.50-10.00)
[2023-10-14 16:46] LABS: ALT 16 U/L (8-44); AST 34 U/L (13-35); Albumin 4.3 g/dL (3.8-4.9); Albumin/Globulin Ratio 1.72 Ratio (1.60-3.17); Alkaline Phosphatase 91 U/L (41-126); BUN/Creat Ratio 20.14 Ratio (12.00-20.00); Blood Urea Nitrogen 14.1 mg/dL (9.0-27.0); Calcium 9.8 mg/dL (8.7-10.3); Carbon Dioxide 21.3 mmol/L (21.6-31.8); Chloride 105 mmol/L (96-109); Chol/HDL Ratio 2.86 Ratio; Ferritin 24.2 ng/mL (10.0-291.0); Globulin 2.5 g/dL (1.6-3.3); Glucose 82 mg/dL (70-110); Iron 80 UG/DL (50-170); LDL Cholesterol,Calculated 92.7 mg/dL (0.0-131.0); Magnesium 1.8 mg/dL (1.5-2.4); Phosphorus 3.3 mg/dL (2.4-5.1); Sodium 140 mmol/L (135-145); Total Bilirubin 0.5 mg/dL (0.3-1.2); Total Iron Binding Capacity 339 UG/DL (228-460); Total Protein 6.8 g/dL (6.2-8.2)
[2023-10-14 22:00] LABS: Prealbumin 14.3 mg/dL (18.0-42.0)
[2023-10-15 12:41] LABS: Zinc, Serum 76 ug/dL (60-130)
== END | disposition home or self-care (01) ==
LOC: LABWHC1 10:11
PROVIDERS: ATTEND Surgery Plastic and Reconstructive Surgery
DX: E66.01 Morbid (severe) obesity due to excess calories (principal); E89.1 Postprocedural hypoinsulinemia; D50.8 Other iron deficiency anemias; K91.2 Postsurgical malabsorption, not elsewhere classified; E44.0 Moderate protein-calorie malnutrition; E45 Retarded development following protein-calorie malnutrition; E55.9 Vitamin D deficiency, unspecified; K74.1 Hepatic sclerosis; N19 Unspecified kidney failure; T56.894A Toxic effect of other metals, undetermined, initial encounter; K50.90 Crohn's disease, unspecified, without complications
CPT/HCPCS: 36415; 80053; 80061; 82306; 82525; 82607; 82728; 82746; 83036; 83540; 83550; 83735; 83970; 84100; 84134; 84255; 84425; 84443; 84590; 84630; 85027; 85610; 85730

== ENCOUNTER → 2024-02-20 | Outpatient (CLI) | payer BC ==
--- NOTE | 2024-02-20 09:50 | US ---
EXAMINATION TYPE: US gallbladder DATE OF EXAM: 02/20/2024 COMPARISON: NONE CLINICAL INDICATION: Female, 33 years old with history of R10.11 ABD PAIN; Pt had gastric sleeve surg edwina in December 2022. Now having GERD and RUQ pain TECHNIQUE: Multiple sonographic images of the right upper quadrant are obtained. FINDINGS: EXAM MEASUREMENTS: Liver Length: 13.9 cm Gallbladder Wall: 0.16 cm CBD: 0.46 cm Right Kidney: 9.7 x 4.5 x 4.5 cm LINING PARTS SEWER NOTES:slightly limited due to body habitus Pancreas: parts seen appear wnl Liver: heterogeneous Gallbladder: Multiple echogenic mobile areas seen in GB Evidence for sonographic Lance's sign: No CBD: wnl Right Kidney: wnl IMPRESSION: 1. No evidence for acute process 2. Cholelithiasis. 3. Heterogenous liver correlate with serum markers for hepatocellular disease.
[2024-02-20 10:39] LABS: INR 0.9 (<1.2); Prothrombin Time 10.5 sec (10.0-12.5)
[2024-02-20 16:01] LABS: % Iron Saturation 18.91 (12.00-45.00); ALT 17 U/L (8-44); AST 25 U/L (13-35); Albumin 4.3 g/dL (3.8-4.9); Albumin/Globulin Ratio 1.79 Ratio (1.60-3.17); Alkaline Phosphatase 75 U/L (41-126); Calcium 9.4 mg/dL (8.7-10.3); Carbon Dioxide 24.4 mmol/L (21.6-31.8); Chloride 106 mmol/L (96-109); Chol/HDL Ratio 2.43 Ratio; Ferritin 15.1 ng/mL (10.0-291.0); Globulin 2.4 g/dL (1.6-3.3); Glucose 80 mg/dL (70-110); Iron 66 UG/DL (50-170); LDL Cholesterol,Calculated 94.9 mg/dL (0.0-131.0); Phosphorus 3.4 mg/dL (2.4-5.1); Sodium 142 mmol/L (135-145); Total Bilirubin 0.4 mg/dL (0.3-1.2); Total Iron Binding Capacity 349 UG/DL (228-460); Total Protein 6.7 g/dL (6.2-8.2)
[2024-02-20 16:25] LABS: HCT 41.4 % (37.2-46.3); HGB 13.7 g/dL (12.0-15.0); MCH 30.9 pg (27.0-32.0); MCHC 33.1 g/dL (32.0-37.0); MCV 93.5 FL (80.0-97.0); Mean Platelet Volume 10.3 FL (9.5-12.2); NRBC Per 100 WBC 0 X 10*3/uL (0.00-0.01); Platelet Count 274 X 10*3/uL (140-440); RBC 4.43 X 10*6/uL (4.10-5.20); WBC 5.21 X 10*3/uL (4.50-10.00)
[2024-02-20 21:31] LABS: Prealbumin 17.1 mg/dL (18.0-42.0)
[2024-02-24 12:52] LABS: Zinc, Serum 89 ug/dL (60-130)
[2024-02-25 06:16] LABS: Vitamin A 45 ug/dL (38-106)
[2024-02-27 06:57] LABS: Vit B1(Thiamine) 74 ug/L (38-122)
[2024-03-04 22:41] LABS: Selenium 128 mcg/L (63-160)
== END | disposition home or self-care (01) ==
LOC: RADUSWWP 08:27
PROVIDERS: ATTEND Surgery Plastic and Reconstructive Surgery
DX: K80.20 Calculus of gallbladder without cholecystitis without obstruction (principal); K21.9 Gastro-esophageal reflux disease without esophagitis; K76.9 Liver disease, unspecified; E66.01 Morbid (severe) obesity due to excess calories; E89.1 Postprocedural hypoinsulinemia; D50.8 Other iron deficiency anemias; K90.89 Other intestinal malabsorption; E55.9 Vitamin D deficiency, unspecified; K74.1 Hepatic sclerosis; N19 Unspecified kidney failure; T56.894A Toxic effect of other metals, undetermined, initial encounter; K50.90 Crohn's disease, unspecified, without complications
CPT/HCPCS: 76705; 80053; 80061; 82306; 82525; 82607; 82728; 82746; 83036; 83540; 83550; 83735; 83970; 84100; 84134; 84255; 84425; 84443; 84590; 84630; 85027; 85610; 85730

== ENCOUNTER 2024-04-05 08:01 | Day surgery (SDC) | payer BC ==
--- NOTE | 2024-04-05 07:27 | P.GSHP ---
History of Present Illness H&P Date: 04/05/24 CHIEF COMPLAINT: Cholecystitis HISTORY OF PRESENT ILLNESS: The patient is a 33-year-old female who presents with history of epigastric including right upper quadrant abdominal pain for over 3 months. She reports intolerance to fatty foods. She underwent diagnostic studies for her gallbladder. Separately her clinical picture was consistent with cholecystitis. Now she presents for surgical intervention. PAST MEDICAL HISTORY: Please see list PAST SURGICAL HISTORY: Please see list MEDICATIONS: Please see list ALLERGIES: Please see list SOCIAL HISTORY: Please see list FAMILY HISTORY: Please see list REVIEW OF ORGAN SYSTEMS: CONSTITUTIONAL: No reports of fevers or chills. HEENT: Denies any troubles with the vision or hearing. ENDOCRINE: No reports of hypothyroidism. No diabetes. RESPIRATORY: No recent pneumonias. CARDIOVASCULAR: Denies chest pain or palpitations GI: No blood in stools or constipation. MUSCULOSKELETAL: Has occasional joint pain including back pain. NEURO: No seizure disorders or headaches. No recent stroke. PSYCH: No depression or suicidal ideation. GENITOURINARY: No active blood in urine. No urinary hesitancy. HEMATOLOGIC: No personal or family history of DVTs or pulmonary emboli. SKIN: No skin cancer. PHYSICAL EXAM: VITAL SIGNS: Afebrile vital signs stable GENERAL: Well-developed pleasant in no acute distress. HEENT: No scleral icterus. Extraocular movements grossly intact. Moist buccal mucosa. NECK: Supple without lymphadenopathy. CHEST: Unlabored respirations. Equal bilateral excursions. CARDIOVASCULAR: Regular rate regular rhythm rhythm. Distal 2+ pulses. ABDOMEN: Soft, nondistended. Tender along the epigastrium and right upper quadrant. MUSCULOSKELETAL: No clubbing, cyanosis, or edema. NEURO: Cranial nerves II to XII within normal limits. No focal or lateralizing signs. PSYCH: Alert and oriented to person, place and time. SKIN: Well-perfused good skin turgor. STUDIES: Ultrasound of the gallbladder independently reviewed demonstrating multiple gallstones. Presence of fatty liver disease. This is my independent interpretation. ASSESSMENT: 1. Epigastric and right upper quadrant abdominal pain 2. Chronic cholecystitis 3. Symptomatic gallstones. PLAN: 1. Will need a robotic cholecystectomy possible open. Benefits and risks were described. 2. Heparin for DVT prophylaxis 5000 units. 3. Antibiotic prophylaxis. 4. CBC and CMP on day of procedure 5. Non-narcotic pre and post op pain management reviewed. 6. Indocyanine green for biliary imaging. Past Medical History Past Medical History: GERD/Reflux Additional Past Medical History / Comment(s): diagnosed with reflux during pregnancies History of Any Multi-Drug Resistant Organisms: None Reported Past Surgical History: Bariatric Surgery Additional Past Surgical History / Comment(s): wisdom teeth removed. EGD. Gastric sleeve 12/30/22 Past Anesthesia/Blood Transfusion Reactions: No Reported Reaction Past Psychological History: Anxiety Additional Psychological History / Comment(s): post generalized anxiety taking lexapro Smoking Status: Never smoker Past Alcohol Use History: Occasional Additional Past Alcohol Use History / Comment(s): 1-2 drinks/month Past Drug Use History: None Reported - Past Family History Mother Family Medical History: No Reported History Medications and Allergies Home Medications Medication Instructions Recorded Confirmed Type Omeprazole [PriLOSEC] 40 mg PO DAILY 02/05/23 03/30/24 History Escitalopram [Lexapro] 10 mg PO DAILY 04/02/23 03/30/24 History Bariatric Multivitamin 1 tab PO DAILY 07/02/23 03/30/24 History Calcium Citrate 1,000 mg PO DAILY 07/02/23 03/30/24 History Allergies Allergy/AdvReac Type Severity Reaction Status Date / Time No Known Allergies Allergy Verified 03/30/24 12:04
[~2024-04-05 08:01] MED LIST changes: +HYDROmorphone 0.5 MG/0.5 ML SYRINGE IVP PRN; +INDOCYANINE GREEN 25 MG VIAL IV STA; +MIDAZOLAM 2 MG/2 ML VIAL IV PRN; -SODIUM CHLORIDE 0.9% 2,000 ML IV ONE; -SODIUM CHLORIDE 0.9% 500 ML 500 ML in EMPTY BAG 1 BAG IV PRN; +fentaNYL (PF) 50 MCG/ML 2 ML AMP IVP PRN
[2024-04-05] MEDS: LIDOCAINE 1% (10MG/ML) FOR IV START INTRADERMA PRN (08:50)
[2024-04-05] MEDS: IV FLUID CONTINUATION 1,000 ML IV ONE (08:50)
[2024-04-05] MEDS: LACTATED RINGERS 1,000 ML IV SCH (08:50)
[2024-04-05] MEDS: ONDANSETRON 4 MG/2 ML VIAL IVP ONE (08:53)
[2024-04-05] MEDS: SCOPOLAMINE 1 MG/72 HR PATCH TRANSDERM STA (08:54)
[2024-04-05] MEDS: HEPARIN SODIUM,PORCINE 5,000 UNIT/ML 1 ML VIAL SQ PRN (08:54)
[2024-04-05] MEDS: DEXAMETHASONE SOD PHOSPHATE 4 MG/ML 1 ML VIAL IV ONE (08:54)
[2024-04-05] MEDS ORDERED: PROPOFOL 10 MG/ML 20 ML VIAL IV ONE (09:42)
[2024-04-05] MEDS ORDERED: ROCURONIUM 10 MG/ML (5 ML VIAL) IV ONE (09:42)
[2024-04-05] MEDS ORDERED: HYDROmorphone (PF) 1 MG/ML ONE (09:42)
[2024-04-05] MEDS ORDERED: MIDAZOLAM 2 MG/2 ML VIAL ONE (09:42)
[2024-04-05] MEDS ORDERED: KETOROLAC 15 MG/ML 1 ML VIAL ONE (09:42)
[2024-04-05] MEDS ORDERED: LIDOCAINE 1% INJ 10MG/ML (20 ML MDV) ONE (09:42)
[2024-04-05] MEDS ORDERED: SUCCINYLCHOLINE CHLORIDE 200 MG/10 ML VIAL IV ONE (09:42)
[2024-04-05] MEDS ORDERED: NEOSTIGMINE 1 MG/ML 10 ML VIAL ONE (09:42)
[2024-04-05] MEDS ORDERED: GLYCOPYRROLATE 0.2 MG/ML 2 ML VIAL ONE (09:42)
[2024-04-05] MEDS ORDERED: fentaNYL (PF) 50 MCG/ML 2 ML AMP ONE (09:42)
[2024-04-05] MEDS: LIDOCAINE 1%-EPI 1:100,000 20 ML VIAL SQ ONE (10:09)
[2024-04-05] MEDS: LACTATED RINGERS 1,000 ML IV ONE (10:22)
[2024-04-05 10:51] VITALS: TEMP 98
--- NOTE | 2024-04-05 11:21 | P.OP ---
Date of Procedure: 04/05/24 Description of Procedure: SURGEON: BETY MARROQUIN MD PREOPERATIVE DIAGNOSES: 1. Symptomatic gallstones 2. Right upper quadrant abdominal pain 3. Obesity due to excess calories, BMI 33.4 4. Status post sleeve gastrectomy 5. Depressive disorder 6. Gastroesophageal reflux disease POSTOPERATIVE DIAGNOSES: 1. Symptomatic gallstones 2. Right upper quadrant abdominal pain 3. Obesity due to excess calories, BMI 33.4 4. Status post sleeve gastrectomy 5. Depressive disorder 6. Gastroesophageal reflux disease 7. Chronic cholecystitis 8. Peritoneal adhesions, right upper quadrant OPERATION: Robotic-assisted da Namrata Xi laparoscopic cholecystectomy, multiport with FIREFLY ESTIMATED BLOOD LOSS: 5 mL. SPECIMENS REMOVED: Gallbladder. COMPLICATIONS: None. OPERATIVE FINDINGS: 1. Moderate scarring over entire gallbladder with peritoneal adhesions, pericholecystic with features of chronic cholecystitis INDICATIONS: The patient is a 33-year-old female who presents with symptomatic gallstones. Robotic assisted laparoscopic approach was described. Benefits and risks of the procedure including but not limited to bleeding, infection, injury to the biliary tree was described. Informed consent was obtained. DESCRIPTION OF PROCEDURE: Patient was brought to the operating room, placed in supine position. After general induction, the abdomen had been prepped and draped in standard sterile fashion. The robotic da Namrata XI system was primed. After a timeout protocol was performed, the patient had been prepped and draped in standard sterile fashion. The patient was injected with indocyanine green. A 5 mm 0 degrees laparoscopic trocar entry was performed along the left upper quadrant. The abdomen insufflated to 15 mmHg pressure which was tolerated well. Diagnostic laparoscopy demonstrated no injury to bowel viscera or mesentery. The liver surface was unremarkable. Next, two 8 mm robotic ports were placed along the right upper abdomen. The camera 8-mm port was maintained along the epigastrium. Another 8 mm port was placed along the left upper abdominal wall after exchanging the 5 mm port. Please note that the ports were placed at least 10 to 15 cm away from the target anatomy of the gallbladder. The robot was docked along the left lateral abdomen. The patient was repositioned in reverse Trendelenburg position. Using a grasper for arm 3, a grasper for arm 4, including hook cautery for arm 1, the robotic system was docked and primed as described. Instruments were interchanged by the assistant professor of physics including hook cautery, Bovie cautery and clip appliers. I had sat at the console. The gallbladder was scarred with peritoneal adhesions. Lysis of adhesions was performed to free the gallbladder from the surrounding tissues. Dome down technique was performed from the gallbladder fundus towards the gallbladder infundibulum. Next attention was brought to the infundibulum and cystic structures. The infundibulum and cystic duct were dissected free from surrounding tissues. The cystic duct was isolated. FIREFLY was used to identify the cystic artery and cystic structures. A critical view of safety was obtained. Large PLASTIC clips were used throughout the entire case. Using a clip assistant federal public defender, 3 clips were placed at the junction of the infundibulum and cystic duct. The cystic duct and cystic artery was divided between clips. Total of 2 clips left at the hepatic fossa. Electro-Bovie cautery was used to remove the gallbladder from the hepatic fossa. Hemostasis was checked and found to be adequate. The robot was undocked. I re-scrubbed into the case. Using a 10 mm Endo Catch bag via the left upper quadrant incision, the specimen was removed from the abdominal cavity. All pneumoperitoneum instruments were evacuated from the abdominal cavity. The incisions were reapproximated using 4-0 Monocryl in an interrupted subcuticular fashion. Fascial defects were less than 8 mm in size. Please note along the trocar sites, local anesthetic was placed as a field block prior to insertion of all instruments. Liquid glue was applied to the skin. At the end of the procedure needle, sponge, and instrument count had been verified correct by the computed tomography technician. The patient was transferred to postanesthesia care unit in stable condition. Intraoperative films were shared with the patient's family. Plan - Discharge Summary Discharge Rx Participant: Yes New Discharge Prescriptions: New Ibuprofen [Motrin] 600 mg PO Q8HR PRN #30 tab PRN Reason: Pain Simethicone [Gas-X] 125 mg PO AC-TID PRN #20 capsule PRN Reason: Pain Acetaminophen Tab [Tylenol Tab] 1,000 mg PO Q6HR PRN #30 tablet PRN Reason: Pain Continue Omeprazole [PriLOSEC] 40 mg PO DAILY Calcium Citrate 1,000 mg PO DAILY Escitalopram [Lexapro] 10 mg PO DAILY Bariatric Multivitamin 1 tab PO DAILY Discharge Medication List Omeprazole [PriLOSEC] 40 mg PO DAILY 02/05/23 [History] Escitalopram [Lexapro] 10 mg PO DAILY 04/02/23 [History] Bariatric Multivitamin 1 tab PO DAILY 07/02/23 [History] Calcium Citrate 1,000 mg PO DAILY 07/02/23 [History] Acetaminophen Tab [Tylenol Tab] 1,000 mg PO Q6HR PRN #30 tablet 04/05/24 [Rx] Ibuprofen [Motrin] 600 mg PO Q8HR PRN #30 tab 04/05/24 [Rx] Simethicone [Gas-X] 125 mg PO AC-TID PRN #20 capsule 04/05/24 [Rx] [facility] up [facility]ment(s[facility] [place] [place] [facility] - 04/07/24 3:00 pm Patient Instructions/Handouts: *Surgery [facility] - Scopalamine Patch Instructions, Laparoscopic Cholecystectomy (DC), Low Fat Diet (DC) Activity/Diet/Wound Care/Special Instructions: NO LONG DRIVES OR AIRPLANE RIDES OVER 600 MINUTES FOR THE NEXT 2 WEEKS, Apr 19, DUE TO HIGH RISK OF PULMONARY EMBOLISM/DVTs May drive in 72 hrs, 04/08/24 Recommend low-fat diet for the next 2 days. No lifting over 10 pounds in 2 weeks until Apr 19 May shower. No bath tub soaks for two weeks until Apr 19 Diet as tolerated. Use Tylenol, simethicone and ibuprofen or Aleve scheduled for the next 24-48 hours for best pain relief. Use ice along incisions for today to prevent swelling. Discharge Disposition: HOME SELF-CARE
[2024-04-05 12:13] VITALS: RESP 14
[2024-04-05 12:50] VITALS: BP 112/63; PULSE 64
== END 2024-04-05 13:07 | disposition home or self-care (01) ==
LOC: OR 08:01
PROVIDERS: ATTEND Surgery Plastic and Reconstructive Surgery
CPT/HCPCS: 47563; 81025; 88304; S2900